=== PATIENT | female | born 1980 | race Two or more races ===

== ENCOUNTER → 2024-11-19 | Outpatient (CLI) | payer MEDICAID, SELFPAY ==
[2024-11-18 13:06] LABS: HCG Qualitative,Urine Negative
--- NOTE | 2024-11-19 07:30 | XR_ITS ---
Examination: CT abdomen and pelvis without contrast. Coronal 3-D reconstructions. Sagittal 2-D reconstructions. Date and time of exam:November 19, 2024 at 0741 hours INDICATIONS: Right upper abdominal pain left upper abdominal pain one year, hyperechoic renal pyramids, nephrocalcinosis, on renal sonogram November 26, 2023 CTDI: vol (mGy): 8.28 DLP: (mGycm): 459 Technique: Axial images of the abdomen have been obtained, 3 mm slice thickness Intravenous contrast material has not been administered. Low dose protocols were performed. One or more of the following dose reduction techniques were used; automated exposure control, adjustment of the mA and/or KV according to patient size, use of iterative reconstruction technique. Findings: No focal liver or splenic lesions No gallstones No pancreatic or adrenal mass Smaller left kidney with mild left renal parenchymal scar formation No renal or ureteral calculi, no hydronephrosis Aorta normal size The distal appendix is fluid-filled and thickened up to 6 mm but without definite periappendiceal inflammatory change No bowel obstruction No pelvic mass Contracted urinary bladder The osseous structures are intact IMPRESSION: No renal or ureteral calculi, no hydronephrosis The distal appendix is fluid-filled and thickened up to 6 mm, but without definite periappendiceal inflammatory change, the appearance, however, should be clinically correlated
== END | disposition home or self-care (01) ==
LOC: CCTX 07:34
PROVIDERS: PCP Physician Assistant; Referring Provider Physician Assistant; Visit Provider Physician Assistant
DX: R93.429 Abnormal radiologic findings on diagnostic imaging of unspecified kidney (principal); Z32.00 Encounter for pregnancy test, result unknown
CPT/HCPCS: 74176; 81025